=== PATIENT | female | born 1950 | race Caucasian/White ===

== ENCOUNTER → 2021-09-28 | Outpatient (CLI) | payer MEDICARE, OTHER ==
[~2021-09-28] VITALS: Ht 152 cm; Wt 81.0 kg
[~2021-09-28] MED LIST: CATHETER FLUSH 10 ML SYR IVP PRN; REGADENOSON 0.4 MG/5 ML SYR (LEXISCAN) IV ONE
[2021-09-28 09:24] VITALS: BP 144/69
--- NOTE | 2021-09-29 17:38 | NUCLEAR STRESS TEST ---
REGADENOSON NUCLEAR STRESS Date of procedure: 09/28/2021. Primary care provider: Sho Rivera MD Admitting physician: Davian Black Jr., MD. INDICATION: Dyspnea on exertion and abnormal electrocardiogram. BASELINE ELECTROCARDIOGRAM: Sinus rhythm with low voltage in the precordial leads. STRESS TEST PROCEDURE: The patient was administered 0.4 mg of intravenous Regadenoson. The resting heart rate was 84 bpm and the peak heart rate was 113 bpm. The resting blood pressure was 144/69 mmHg and the minimum blood pressure was 144/69 mmHg. This represents a normal heart rate and a blunted blood pressure response to Regadenoson. The test was stopped due to the protocol. There was no chest discomfort during the test. There were no arrhythmias during the test. There were no significant stress induced electrocardiogram changes. NUCLEAR PROCEDURE: The patient was administered 10.1 mCi of intravenous technetium 99m Tetrofosmin at rest for the rest images. The patient was subsequently administered 28.6 mCi of intravenous technetium 99m Tetrofosmin at peak stress for the stress images. Following an appropriate wait after each injection, imaging was obtained. The images were subsequently processed and reformatted in the usual views. Gated imaging was obtained. The image quality was adequate with a mild degree of gastrointestinal attenuation artifact. CT attenuation correction was used as a adjunct to standard imaging. Both the corrected and uncorrected images were reviewed for interpretation. NUCLEAR RESULTS: There was normal myocardial perfusion in all segments without evidence of infarction or ischemia. There was normal left ventricular chamber size with an end-diastolic volume of 26 mL and an end-systolic volume of 3 mL. There was no evidence of transient ischemic dilatation. The TID ratio was 0.98. There was normal wall motion in all segments with a calculated ejection fraction of 88%. IMPRESSION: 1. Normal heart rate and a blunted blood pressure response to regadenoson. 2. There was no chest discomfort, arrhythmias, or electrocardiogram changes during the test. 3. There was normal myocardial perfusion in all segments without evidence of infarction or ischemia. 4. There was normal wall motion in all segments with a calculated ejection fraction of 88%. Certain portions of this document may have been dictated utilizing voice recognition technology. Inherent to this technology, typographical and grammatical errors may exist. As much as I am diligent to identify and correct these mistakes, some errors may remain in the document. DAVIAN BLACK JR, MD Sep 29, 2021 17:38
== END ==
LOC: CARD 08:00
PROVIDERS: ATTEND Internal Medicine Cardiovascular Disease
DX: R06.09 Other forms of dyspnea (principal); R94.31 Abnormal electrocardiogram [ECG] [EKG]
CPT/HCPCS: 78452; 93017; A9502

== ENCOUNTER 2021-10-11 10:17 | Outpatient (CLI) | payer MEDICARE, OTHER | END 2021-10-11 11:00 | LOC: SLEEP 10:17 | PROVIDERS: ATTEND Internal Medicine Cardiovascular Disease | DX: G47.33 Obstructive sleep apnea (adult) (pediatric) (principal); I10 Essential (primary) hypertension | CPT/HCPCS: G0399 ==